=== PATIENT | male | born 1955 | race Caucasian/White ===

== ENCOUNTER 2024-03-17 06:17 | Day surgery (SDC) | payer MEDICARE, BC ==
[2024-03-16 10:52] LABS: BASOPHILS # (AUTO) 0.1 X10'3 (0-0.2); EOSINOPHILS # (AUTO) 0.2 X10'3 (0-0.9); HEMOGLOBIN 11.2 g/dl (14.0-17.9); LYMPHOCYTES # (AUTO) 1.8 X10'3 (1.1-4.8); MEAN CORPUSCULAR HGB CONC 32.7 g/dL (33.0-36.5); WHITE BLOOD COUNT 10.1 X10'3 (4.5-11.0)
[2024-03-16 10:54] LABS: BASOPHILS % (AUTO) 0.7 % (0-1); EOSINOPHILS % (AUTO) 1.6 % (0-6); HEMATOCRIT 34.4 % (42.0-52.0); LYMPHOCYTES % (AUTO) 17.9 % (21-51); MEAN CORPUSCULAR HEMOGLOBIN 30.4 PG (27.0-31.0); MEAN CORPUSCULAR VOLUME 92.8 FL (78-98); MEAN PLATELET VOLUME 7.8 FL (7.4-10.4); MONOCYTES # (AUTO) 0.8 X10'3 (0-0.9); MONOCYTES % (AUTO) 8.1 % (2-12); NEUTROPHILS # (AUTO) 7.2 X10'3 (1.8-7.7); NEUTROPHILS % (AUTO) 71.7 % (42-75); PLATELET COUNT 243 X10'3 (140-440); RED BLOOD COUNT 3.71 X10'6 (4.70-6.10); RED CELL DISTRIBUTION WIDTH 13.4 % (11.5-14.5)
[2024-03-16 11:09] LABS: APTT 30 SECONDS (22-32); PROTHROMBIN TIME 10.9 SECONDS (9.0-12.0)
[2024-03-16 11:12] LABS: ANION GAP 9 (8-16); BLOOD UREA NITROGEN 25 MG/DL (7-18); BUN/CREATININE RATIO 22.5 (10.0-20.0); CHLORIDE 105 MMOL/L (99-107); CREATININE 1.11 MG/DL (0.60-1.10); GLUCOSE 110 MG/DL (70-104); POTASSIUM 4.2 MMOL/L (3.5-5.1); SODIUM 141 MMOL/L (135-145); TOTAL CARBON DIOXIDE 26.9 MMOL/L (24-32); eGFR 65 ML/MIN
[~2024-03-17] VITALS: Ht 167.6 cm; Wt 57.1 kg
[2024-03-17] VITALS (13 sets, daily range): BP systolic 95–124; BP diastolic 51–62; PULSE 60–68; RESP 10–15; TEMP 98.1; O2SAT 95–98
[~2024-03-17 06:17] MED LIST: AMLO10TA13 PO; HYDR12.55 PO; LOP25T PO; LOSA100T58 PO
[2024-03-17] MEDS ORDERED: TADA5TAB2 PO (07:08)
[2024-03-17] MEDS ORDERED: IBUP-24 PO (07:08)
[2024-03-17] MEDS ORDERED: METO50TA16 PO (07:08)
[2024-03-17] MEDS: diphenhydrAMINE 25mg capsule PO PRN (07:09)
[2024-03-17] MEDS: LORazepam 0.5 MG tablet PO PRN (07:09)
[2024-03-17] MEDS: normal saline 1,000 ML IV SCH (07:09)
[2024-03-17] MEDS ORDERED: LIDOcaine 1% (10mg/ml) 2ml vial ONE (07:26)
[2024-03-17] MEDS ORDERED: heparin 1,000unit/ml 10ml vial 10 ML ONE (07:26)
[2024-03-17] MEDS ORDERED: verapamil 2.5 mg/ml inj IV ONE (07:26)
[2024-03-17] MEDS ORDERED: iohexol 350MG/ML 100ml bottle IV ONE ×2 (07:26→09:14)
[2024-03-17] MEDS ORDERED: iohexol 350 MG/ML 50ML vial IV ONE ×3 (07:26→08:39)
[2024-03-17] MEDS ORDERED: fentaNYL/PF 50MCG/1 ML 2ML syringe ONE (07:26)
[2024-03-17] MEDS ORDERED: midazolam 1 mg/ML 2ml injection ONE ×2 (07:26→09:54)
[2024-03-17] MEDS ORDERED: nitroGLYCERIN 500mcg/5mL D5W 5 ML IV ONE ×2 (07:27→09:51)
[2024-03-17] MEDS ORDERED: heparin 25,000 UNIT/250ml bag 250 ML IV ONE (09:14)
[2024-03-17] MEDS ORDERED: LIDOcaine 1% 30ml preserv. free vial ONE (09:17)
[2024-03-17] MEDS ORDERED: heparin 1,000 UNITS/NS 500ml 500 ML ONE (09:17)
[2024-03-17] MEDS ORDERED: clopidogrel 300mg tablet ONE (10:09)
[2024-03-17] MEDS ORDERED: aspirin 325mg tablet ONE (10:27)
[2024-03-17 10:35] LABS: ISTAT HGB ART 9.5 g/dl (14.0-17.9); ISTAT Hct ART 28 %PCV (42-52); ISTAT O2 SATURATION ARTERIAL 92 % (95-98); ISTAT SOURCE ART
[2024-03-17] MEDS ORDERED: ondansetron/PF 4mg/2ml inj IV PRN (11:00)
[2024-03-17] MEDS ORDERED: OXAZEpam 15mg capsule PO PRN (11:05)
[2024-03-17] MEDS ORDERED: aspirin 81mg tab.chew PO ONE (11:05)
[2024-03-17] MEDS ORDERED: proCHLORperazine 10 MG/2 ml inj IV PRN (11:05)
[2024-03-18] MEDS ORDERED: aspirin 81mg, enteric-coated 1 TAB TABLET.DR PO SCH (08:00)
[2024-03-18] MEDS ORDERED: clopidogrel 75mg tablet PO SCH (08:00)
[2024-03-19 07:27] LABS: ISTAT HGB MIX 9.9 g/dl (14.0-17.9); ISTAT Hct MIX 29 %PCV (42-52); ISTAT O2 SATURATION MIX VENOUS 66 % (60-80); ISTAT SOURCE VEN
== END 2024-03-17 17:10 | disposition home or self-care (01) ==
LOC: SSTAY O 06:17
PROVIDERS: ATTEND Internal Medicine Cardiovascular Disease
DX: I35.0 Nonrheumatic aortic (valve) stenosis (principal); I25.10 Atherosclerotic heart disease of native coronary artery without angina pectoris; I10 Essential (primary) hypertension; E78.5 Hyperlipidemia, unspecified; I48.0 Paroxysmal atrial fibrillation; K21.9 Gastro-esophageal reflux disease without esophagitis; M10.9 Gout, unspecified; Z79.899 Other long term (current) drug therapy; Z98.890 Other specified postprocedural states; Z82.3 Family history of stroke; Z80.9 Family history of malignant neoplasm, unspecified
CPT/HCPCS: 36415; 76937; 80048; 82803; 85014; 85025; 85347; 85610; 85730; 93005; 93460; 93567; 99152; 99153; A6258; A6402; C1725; C1751; C1769; C1874; C1894; C9600; J1644; J2001; J2250; J3010; J3490; J7030; Q0163; Q9967; Z7610

== ENCOUNTER 2024-04-05 09:26 | Outpatient (CLI) | payer MEDICARE, BC ==
[~2024-04-05 09:26] MED LIST changes: -HYDR12.55 PO; +IBUP-24 PO; +IODIXANOL 320 MG/ML INFUS..BTL 100ML IV ONE; -LOP25T PO; +METO50TA16 PO; +TADA5TAB2 PO
[2024-04-05 10:14] LABS: APTT 28 SECONDS (22-32); PROTHROMBIN TIME 10.9 SECONDS (9.0-12.0)
[2024-04-05 10:28] LABS: ALANINE AMINOTRANSFERASE 28 U/L (12-78); ALBUMIN 3.9 G/DL (3.4-5.0); ALBUMIN/GLOBULIN RATIO 1.1 (1.1-1.5); ALKALINE PHOSPHATASE 57 IU/L (46-116); ANION GAP 7 (8-16); ASPARTATE AMINO TRANSFERASE 22 U/L (10-37); BILIRUBIN,TOTAL 1.1 MG/DL (0.1-1.0); CALCIUM 9.3 MG/DL (8.5-10.1); CHLORIDE 106 MMOL/L (99-107); CREATININE 1.25 MG/DL (0.60-1.10); GLUCOSE 107 MG/DL (70-104); POTASSIUM 4.3 MMOL/L (3.5-5.1); PRO BRAIN NATRIURETIC PEPTIDE 581 PG/ML (0-125); SODIUM 139 MMOL/L (135-145); TOTAL PROTEIN 7.5 G/DL (6.4-8.2); eGFR 57 ML/MIN
[2024-04-05 10:36] LABS: BLOOD UREA NITROGEN 24 MG/DL (7-18); BUN/CREATININE RATIO 19.2 (10.0-20.0)
[2024-04-05 12:33] LABS: BASOPHILS # (AUTO) 0.1 X10'3 (0-1); BASOPHILS % 1 % (0-2); EOSINOPHILS # (AUTO) 0.3 X10'3 (0-0.9); EOSINOPHILS % (AUTO) 3 % (0-5); HEMATOCRIT 33.3 % (43.5-53.7); HEMOGLOBIN 11.1 G/DL (12.5-16.3); LYMPHOCYTES # (AUTO) 1.7 X10'3 (0.6-4.1); LYMPHOCYTES % 16 % (24-44); MEAN CORPUSCULAR HEMOGLOBIN 31.6 PG (27-31.2); MEAN CORPUSCULAR HGB CONC 33.4 % (32-36); MEAN CORPUSCULAR VOLUME 94.9 FL (81-97); MONOCYTES # (AUTO) 0.7 X10'3 (0-0.9); MONOCYTES % 7 % (0-12); NEUTROPHILS # (AUTO) 7.8 X10'3 (>=1.4); PLATELET COUNT 238 X10'3 (130-400); RED CELL DISTRIBUTION WIDTH 13.9 % (11-16); SEGMENTED NEUTROPHILS % 74 % (36-66); WHITE BLOOD COUNT 10.5 X10'3 (4.5-11.0)
[2024-05-06] MEDS ORDERED: IODIXANOL 320 MG/ML INFUS..BTL 100ML IV ONE (08:00)
== END 2024-04-05 23:59 | disposition home or self-care (01) ==
LOC: VAS 09:26
PROVIDERS: ATTEND Internal Medicine Cardiovascular Disease
DX: I35.0 Nonrheumatic aortic (valve) stenosis (principal); R06.02 Shortness of breath; J98.4 Other disorders of lung; J98.11 Atelectasis; I65.29 Occlusion and stenosis of unspecified carotid artery; N40.0 Benign prostatic hyperplasia without lower urinary tract symptoms; M47.815 Spondylosis without myelopathy or radiculopathy, thoracolumbar region; I70.0 Atherosclerosis of aorta
CPT/HCPCS: 36415; 71046; 71275; 74174; 75572; 80053; 83880; 85025; 85610; 85730; 93880; Q9967